=== PATIENT | male | born 1960 ===

== ENCOUNTER 2017-12-02 21:28 | Emergency (ER) | payer BC ==
[2017-12-02 21:40] VITALS: BMI 30.7
[2017-12-02] MEDS ORDERED: Sodium Chloride 0.9% 1,000 ML IV STA (22:04)
--- NOTE | 2017-12-02 22:51 | ED PDOC ---
HPI: Male Pain Time Seen by Provider: 12/02/17 21:49 Chief Complaint (Nursing): Male Genitourinary Chief Complaint (Provider): Male Genitourinary History Per: Patient History/Exam Limitations: no limitations Onset/Duration Of Symptoms: Days (x2) Current Symptoms Are (Timing): Still Present Associated Symptoms: Urinary Symptoms Additional Complaint(s): 57 year old male presents to the ED with urinary frequency, hesitancy and dysuria associated with fever, chills, sweats, nausea and body aches since yesterday. He reports symptoms are similar to when he had a urine infection and posthitis. Denies hematuria and back pain. PMD: Dr. Perez Past Medical History Reviewed: Historical Data, Nursing Documentation, Vital Signs Vital Signs: Last Vital Signs Temp 98.7 F 12/02/17 21:40 Pulse 93 H 12/02/17 21:40 Resp 19 12/02/17 21:40 BP 111/70 12/02/17 21:40 Pulse Ox 93 L 12/02/17 21:40 - Medical History PMH: Hypercholesterolemia Denies: Alzheimer's Disease, Anemia, Anxiety, Arthritis, Asthma, Atrial Fibrillation, Bipolar Disorder, Bronchitis, CAD, Cardia Arrhythmia, CHF, COPD, Crohn's Disease, Dementia, Depression, Diverticulitis, Emphysema, Fractures, Gastritis, Gall Bladder Disease, HIV, HTN, Hyperthyroidism, Hypothyroidism, Kidney Stones, Migraine, Mitral Valve Prolapse, Multiple Sclerosis, Osteoporosis , Pancreatitis, Paranoia, Parkinson's Disease, Peripheral Edema, Pneumonia, Post Traumatic Stress Disorder, Pulmonary Embolism, Chronic Kidney Disease, Rheumatoid Arthritis, Schizophrenia, Seizures, Sickle Cell Disease, Sexually Transmitted Disease, Sleep Apnea, TIA - Surgical History Surgical History: Appendectomy Denies: CABG, Carotid Endarterectomy, Cholecystectomy, Coronary Stent, Pacemaker, Tonsillectomy - Family History Family History: States: Unknown Family Hx - Home Medications Home Medications: Ambulatory Orders Medication Instructions Recorded Ciprofloxacin [Cipro] 500 mg PO BID #19 tab 05/29/15 Ciprofloxacin [Cipro] 1 tab PO BID #20 tab 12/03/17 Ketorolac Tromethamine [Toradol] 10 mg PO Q8 PRN #30 tab 12/03/17 Phenazopyridine [Phenazopyridine 200 mg PO BID PRN #20 tab 12/03/17 HCl] - Allergies Allergies/Adverse Reactions: Allergies Allergy/AdvReac Type Severity Reaction Status Date / Time No Known Allergies Allergy Verified 03/21/14 21:30 Review of Systems ROS Statement: Except As Marked, All Systems Reviewed And Found Negative Genitourinary Male: Positive for: Dysuria, Frequency. Negative for: Hematuria Musculoskeletal: Negative for: Back Pain Physical Exam - Reviewed Nursing Documentation Reviewed: Yes Vital Signs Reviewed: Yes - Physical Exam Appears: Positive for: Non-toxic, In Acute Distress (mild painful distress) Head Exam: Positive for: ATRAUMATIC, NORMAL INSPECTION, NORMOCEPHALIC Skin: Positive for: Warm, Dry Eye Exam: Positive for: EOMI, PERRL ENT: Positive for: Pharynx Is (CLEAR) Neck: Positive for: Painless ROM, Supple Cardiovascular/Chest: Positive for: Regular Rate, Rhythm, Chest Non Tender. Negative for: Murmur Respiratory: Positive for: Normal Breath Sounds. Negative for: Wheezing Gastrointestinal/Abdominal: Positive for: Tenderness (mild suprapubic tenderness to palpation). Negative for: Mass, Distended, Guarding, Rebound Back: Positive for: Normal Inspection. Negative for: L CVA Tenderness, R CVA Tenderness Extremity: Positive for: Normal ROM. Negative for: Deformity Lymphatic: Negative for: Adenopathy Neurologic/Psych: Positive for: Alert. Negative for: Motor/Sensory Deficits - Laboratory Results Result Diagrams: 12/02/17 22:45 12/02/17 22:45 - ECG O2 Sat by Pulse Oximetry: 93 (RA) Pulse Ox Interpretation: Normal Medical Decision Making Medical Decision Making: Time: 22:04 Impression; UTI Differential diagnosis include but are not limited: pyelonephritis, sepsis, cystitis, prostatitis Initial Plan; --Ct Abd Pelvis --VBG --CBC --CMP --NS IV 1,000 mls/hr --Toradol 30 mg IV --Blood cx --Urine cx --UA Ellevated WBC. UA c/w UTI. Time: 23:44 CT Abdomen and Pelvis w/o Contrast TECHNIQUE: Axial computed tomography images of the abdomen and pelvis without intravenous contrast. All CT scans at this facility use at least one of these dose optimization techniques: automated exposure control; mA and/or kV adjustment per patient size (includes targeted exams where dose is matched to clinical indication); or iterative reconstruction. COMPARISON: CT - ABDOMEN^RENAL_STONE (ADULT) 2010-09-09 16:57 FINDINGS: Lung bases: Unremarkable. No mass. No consolidation. ABDOMEN: Liver: Mild fatty infiltration of the liver. Gallbladder and bile ducts: Unremarkable. No calcified stones. No ductal dilation. Pancreas: Unremarkable. No ductal dilation. Spleen: Unremarkable. No splenomegaly. Adrenals: Unremarkable. No mass. Kidneys and ureters: Unremarkable. No obstructing stones. No hydronephrosis. Stomach and bowel: Unremarkable. No obstruction. No mucosal thickening. PELVIS: Appendix: The appendix is not seen. Bladder: Unremarkable. No stones. Reproductive: There is some inflammation around the prostate gland. Prostate is mildly prominent in size. ABDOMEN and PELVIS: Intraperitoneal space: Unremarkable. No free air. No significant fluid collection. Bones/joints: No acute fracture. No dislocation. Soft tissues: Small umbilical hernia containing fat. Small bilateral inguinal hernias containing fat. Vasculature: Unremarkable. No abdominal aortic aneurysm. Lymph nodes: Unremarkable. No enlarged lymph nodes. IMPRESSION: There is some inflammation around the prostate gland. Prostate is mildly prominent in size. Findings suggest prostatitis. Correlation with clinical information would be helpful. Dictated and Authenticated by: Keny Marie MD 12/02/2017 11:44 PM Eastern Time ([place] & [place]) On reevaluation pt reports feeling better. Eager to be discharged. Mandatory follow up PMD in 24-48 hours for reevaluation. Also emphasized need to follow up with Urology as soon as possible given recurrence of cystitis/prostatitis. DW pt and family findings and plan of care. ---- Scribe Attestation: Documented by Janett Zapata, acting as a scribe for Kelle Leyva MD Provider Scribe Attestation: All medical record entries made by the Scribe were at my direction and personally dictated by me. I have reviewed the chart and agree that the record accurately reflects my personal performance of the history, physical exam, medical decision making, and the department course for this patient. I have also personally directed, reviewed, and agree with the discharge instructions and disposition. Disposition - Clinical Impression Clinical Impression: Prostatitis - Disposition Referrals: Robert Perez MD [Family Provider] - 12/03/17 (VISITA BLACKMON DOCTOR EN 1-2 [facility] A CHEQAR DE NEUVO) Denice Guthrie MD [Medical Doctor] - (LLAME A LA OFICINA POR LA MANANA A HACER LANRE INEZ POR MAS EVALUACIONES) Disposition: Routine/Home Disposition Time: 00:20 Condition: IMPROVED Additional Instructions: CONTINUE TYLENOL (1000MG) PARA FIEBRE. JOE MUCHOS LIQUIDOS. MARY MEDICINAS A RECETO PARA DOLOR Y ARDOR DE ORINA. MARY ANTIBIOTICS A RECETO. VISITA BLACKMON DOCTOR EN 24-48 HORAS A CHEQAR DE NUEVO. REGRESA SI SIENTE PEOR. Prescriptions: Ciprofloxacin [Cipro] 1 tab PO BID #20 tab Ketorolac Tromethamine [Toradol] 10 mg PO Q8 PRN #30 tab PRN Reason: PAIN Phenazopyridine [Phenazopyridine HCl] 200 mg PO BID PRN #20 tab PRN Reason: DYSURIA Instructions: Prostatitis (DC) Print Language: UKRAINIAN
[2017-12-02 23:01] LABS: VENOUS BLOOD GAS BASE EXCESS -0.1 mmol/L (0.0-2.0); VENOUS BLOOD GAS PCO2 36 mmHg (40-60); VENOUS BLOOD GAS PO2 43 mm/Hg (30-55); VENOUS BLOOD PH 7.43 (7.32-7.43)
[2017-12-02 23:05] LABS: BASO # 0.1 K/uL (0.0-0.2); BASO % 0.3 % (0.0-2.0); HEMOGLOBIN 13.9 g/dL (12.0-18.0); LYMPH # 1.8 K/uL (1.0-4.3); LYMPH % 9.8 % (20.0-40.0); MEAN CELL VOLUME 91.9 fl (80.0-94.0); MEAN CORPUSCULAR HEMOGLOBIN 31.4 pg (27.0-31.0); MEAN CORPUSCULAR HGB CONC 34.2 g/dL (33.0-37.0); MEAN PLATELET VOLUME 7.8 fl (7.2-11.7); MONO # 1.1 K/uL (0.0-0.8); MONO % 6.2 % (0.0-10.0); NEUT # 15.3 K/uL (1.8-7.0); NEUT % 83.7 % (50.0-75.0); PLATELET COUNT 193 K/uL (130-400); RBC 4.41 Mil/uL (4.40-5.90); RED CELL DISTRIBUTION WIDTH 12.9 % (11.5-14.5); WHITE BLOOD COUNT 18.3 K/uL (4.8-10.8)
[2017-12-02 23:06] LABS: URINE BACTERIA FEW (<OCC); URINE BILIRUBIN NEGATIVE (NEGATIVE); URINE BLOOD SMALL (NEGATIVE); URINE CLARITY SLIGHTY-CLOUDY (Clear); URINE COLOR YELLOW (YELLOW); URINE GLUCOSE (UA) NEG (Normal); URINE LEUKOCYTE ESTERASE LARGE Leu/uL (Negative); URINE PROTEIN NEGATIVE (NEGATIVE); URINE UROBILINOGEN 0.2-1.0 mg/dL (0.2-1.0)
[2017-12-02 23:09] LABS: SQUAMOUS EPITHIAL 2 /hpf (0-5)
[2017-12-02] MEDS ORDERED: Ciprofloxacin 400mg/200ml D5W 400 MG/200 ML BAG IV STA (23:11)
[2017-12-02 23:15] LABS: ALB/GLOB RATIO 1.4 (1.0-2.1); ALBUMIN 4.3 g/dL (3.5-5.0); ALT/SGPT 37 U/L (21-72); AST/SGOT 28 U/L (17-59); BLOOD UREA NITROGEN 16 mg/dl (9-20); CALCIUM 9.2 mg/dL (8.4-10.2); GFR AFRICAN-AMERICAN > 60; GFR NON-AFRICAN AMERICAN > 60
[2017-12-03 00:03] VITALS: RESP 17
[2017-12-03 00:59] VITALS: BP 108/64; PULSE 71; TEMP 98.3
[2017-12-03 01:42] LABS: BANDS 3 % (0-2); LYMPHOCYTE 9 % (20-50); MONOCYTE 6 % (0-10); NEUTROPHIL 80 % (42-75); PLATELET ESTIMATE NORMAL (NORMAL); REACTIVE LYMPHOCYTES 2 % (0-0); TOTAL CELLS COUNTED 100
--- NOTE | 2017-12-03 09:07 | CT ---
Date of service: 12/02/2017 PROCEDURE: CT Abdomen and Pelvis without intravenous contrast HISTORY: pelvic pain dysuria fever COMPARISON: 09/09/2010 TECHNIQUE: Contrast dose: None Radiation dose: Total exam DLP = 731 mGy-cm. This CT exam was performed using one or more of the following dose reduction techniques: Automated exposure control, adjustment of the mA and/or kV according to patient size, and/or use of iterative reconstruction technique. FINDINGS: LOWER THORAX: Unremarkable. LIVER: Unremarkable. No gross lesion or ductal dilatation. GALLBLADDER AND BILE DUCTS: Unremarkable. PANCREAS: Unremarkable. No gross lesion or ductal dilatation. SPLEEN: Unremarkable. ADRENALS: Unremarkable. No mass. KIDNEYS AND URETERS: There are interval trace perirenal strandy inflammatory changes present. No hydronephrosis. . The ureters each appear probably top-normal throughout their course. No urolithiasis apparent. VASCULATURE: Unremarkable. No aortic aneurysm. BOWEL: Unremarkable. No obstruction. No gross mural thickening. APPENDIX: Appendix not clearly visualized. No pericecal inflammatory changes noted. PERITONEUM: Unremarkable. No free fluid. No free air. LYMPH NODES: Unremarkable. No enlarged lymph nodes. BLADDER: Moderate bladder distention. Within large prostate indenting and blending with it REPRODUCTIVE: Prostate is enlarged with mild amorphous inflammatory changes of the periprostatic fat. The enlarged prostate indents the bladder and blends with it. . Seminal vesicles appear symmetrically mildly prominent. The size of the seminal vesicles and the prostate are slightly increased compared to the prior study. BONES: Interval progressive discogenic L4-5 and L5-S1 sclerotic and subchondral cystic change. -interval progressive disc space narrowing at L4-5 and L5-S1. Facet hypertrophic changes at these 2 levels as well noted OTHER FINDINGS: Bilateral fat containing groin hernias. No bowel containing hernia is noted. IMPRESSION: Enlarged prostate with mild surrounding inflammatory change. A prostatitis is 1 consideration. Clinical follow-up recommended Concordant results (preliminary interpretation) provided by [facility].
[2017-12-03 15:19] VITALS: O2SAT 93
== END 2017-12-03 00:50 | disposition home or self-care (01) ==
LOC: H.ER 21:28
DX: N41.9 Inflammatory disease of prostate, unspecified (principal); E78.00 Pure hypercholesterolemia, unspecified; N40.0 Benign prostatic hyperplasia without lower urinary tract symptoms
CPT/HCPCS: 74176; 80053; 81003; 82803; 85025; 87040; 87086; 96365; 96375; 99285; J0744; J1885; J7030